=== PATIENT | male | born 1995 | race Caucasian/White ===

== ENCOUNTER 2017-12-26 19:28 | Emergency (ER) | payer OTHER ==
--- NOTE | 2017-12-26 19:55 | ED Physician Documentation ---
PD HPI UPPER EXT INJURY - Stated complaint Stated Complaint: RT ARM INJ - Chief complaint Chief Complaint: Ext Problem - History obtained from History obtained from: Patient - History of Present Illness Location: Right (Right-handed gentleman, active duty in the [employer]. He fell while working out and hyperextended his elbow. Isolated elbow injury. He declines pain medication on initial evaluation.) Review of Systems Constitutional: denies: Fever, Chills Musculoskeletal: reports: Joint swelling Neurologic: denies: Headache, Head injury PD PAST MEDICAL HISTORY - Past Medical History Past Medical History: No - Past Surgical History Past Surgical History: No - Present Medications Home Medications: Ambulatory Orders Medication Instructions Recorded Confirmed No Known Home Medications 12/26/17 12/26/17 - Allergies Allergies/Adverse Reactions: Allergies Allergy/AdvReac Type Severity Reaction Status Date / Time No Known Drug Allergies Allergy Verified 12/26/17 19:34 - Social History Does the pt smoke?: Yes Smoking Status: Current every day smoker Does the pt drink ETOH?: No Does the pt have substance abuse?: No - Immunizations Immunizations are current?: Yes - POLST Patient has POLST: No PD ED PE NORMAL - Vitals Vital signs reviewed: Yes - General General: Alert and oriented X 3, No acute distress - Neck Neck: Supple, no meningeal sign, No bony TTP - Extremities Extremities: Other (Significant swelling and tenderness in the supracondylar area of the right elbow. He cannot range it at all. Normal sensation in the hand and radial pulse.) - Neuro Neuro: Alert and oriented X 3, Normal speech Results - Vitals Vitals: Vital Signs - 24 hr 12/26/17 12/26/17 19:31 20:44 Temperature 37.3 C 37.0 C Heart Rate 65 82 Respiratory 18 20 Rate Blood Pressure 139/76 H 136/80 H O2 Saturation 96 97 Oxygen O2 Source Room air - Rads (name of study) R elbow XR Radiology: EMP read contemporaneously (Acute and asymmetrically displaced supracondylar fracture with a large effusion.) Procedures - Splint (location) RUE Splint applied by: Tech Type of splint: Fiberglass, Long arm, Posterior Other: Patient tolerated well, No complications, Neurovascular intact, Sling provided PD MEDICAL DECISION MAKING - ED course ED course: [place] Ab[place] and recommended splinting and will follow up with him as an outpatient. - Sepsis Event Vital Signs: Vital Signs - 24 hr 12/26/17 12/26/17 19:31 20:44 Temperature 37.3 C 37.0 C Heart Rate 65 82 Respiratory 18 20 Rate Blood Pressure 139/76 H 136/80 H O2 Saturation 96 97 Oxygen O2 Source Room air Departure - Departure Disposition: Home, Self Care Clinical Impression: Supracondylar fracture of humerus Condition: Good Record reviewed to determine appropriate education?: Yes Instructions: ED Fx Upper Ext Comments: Keep the splint on and dry, Tylenol as needed for pain. Report to the orthopedics desk at the [facility] on Friday at 7:[address] Neri for further evaluation and treatment. Discharge Date/Time: 12/26/17 20:45
[2017-12-26 20:45] VITALS: BP 136/80
--- NOTE | 2017-12-26 20:51 | XRAY Report ---
Reason: fall/pain Procedure Date: 12/26/2017 Accession Number: [id number] / [id number] Procedure: XR - Elbow 3 View RT CPT Code: FULL RESULT: EXAM: RIGHT ELBOW RADIOGRAPHY EXAM DATE: 12/26/2017 07:59 PM. CLINICAL HISTORY: Fall, pain. COMPARISON: None. TECHNIQUE: 4 views. FINDINGS: Bones: Acute asymmetrically displaced supracondylar fracture, degree of displacement greatest involving the trochlea. Joints: Large effusion. Soft Tissues: Extensive edema. IMPRESSION: Supracondylar fracture. RADIA
== END 2017-12-26 20:45 | disposition home or self-care (01) ==
LOC: ED 19:28
DX: S42.414A Nondisplaced simple supracondylar fracture without intercondylar fracture of right humerus, initial encounter for closed fracture (principal); F17.200 Nicotine dependence, unspecified, uncomplicated; W19.XXXA Unspecified fall, initial encounter; X50.1XXA Overexertion from prolonged static or awkward postures, initial encounter; Y93.89 Activity, other specified; Y99.8 Other external cause status
CPT/HCPCS: 29105; 99283